=== PATIENT | female | born 1980 | race Caucasian/White ===

== ENCOUNTER 2022-10-05 14:22 | Outpatient (CLI) | payer MEDICAID, SELFPAY ==
[2022-10-05 22:12] LABS: Cholesterol* 192 mg/dL (90-199); Glucose* 90 mg/dL (60-115); Triglycerides* 245 mg/dL (40-149)
[2022-10-05 22:13] LABS: HDL Cholesterol* 54 mg/dL (>=50); LDL Cholesterol Calculated 89 mg/dL (<100)
[2022-10-07 02:47] LABS: Iron* 25 ug/dL (37-170)
[2022-10-07 03:23] LABS: Ferritin* 6.8 ng/mL (6.24-137.0)
== END 2022-10-05 14:23 | disposition home or self-care (01) ==
PROVIDERS: PCP Family Medicine; Visit Provider Registered Nurse
DX: Z01.419 Encounter for gynecological examination (general) (routine) without abnormal findings (principal); N92.0 Excessive and frequent menstruation with regular cycle; I10 Essential (primary) hypertension; E66.01 Morbid (severe) obesity due to excess calories; Z13.6 Encounter for screening for cardiovascular disorders; Z13.1 Encounter for screening for diabetes mellitus
CPT/HCPCS: 80061; 82728; 82947; 83540; 84443

== ENCOUNTER 2022-12-06 14:55 | Outpatient (CLI) | payer MEDICAID, SELFPAY ==
--- NOTE | 2022-12-06 14:40 | CRLHL7_ITS ---
For Patients: As a result of the Century Cures Act, medical imaging exams and procedure reports are released immediately into your electronic medical record. You may view this report before your referring provider. If you have questions, please contact your health care provider. BILATERAL SCREENING MAMMOGRAM WITH COMPUTER-AIDED DETECTION AND TOMOSYNTHESIS TECHNIQUE: CC and MLO views were obtained. These mammographic images have been obtained using full-field digital technique. These mammographic images were interpreted with the benefit of computer-aided detection. Breast tomosynthesis was used in this interpretation. COMPARISON FILM: None. This is a baseline study. FINDINGS: The breasts are heterogeneously dense, which may obscure small masses. IMPRESSION: There is no radiographic evidence for malignancy. ASSESSMENT: BI-RADS Category 1: Negative RECOMMENDATION: Routine screening mammogram in 1 year. A lay language report of this examination will be provided to the patient. MICHAEL PENA M.D. Diagnostic Radiologist [email or web address] Transcribed: 12/07/2022, 2:[address]/Dictated by: Michael Pena MD @ 12/07/2022 9:37:00 AM (Electronically Signed)
== END 2022-12-06 14:56 | disposition home or self-care (01) ==
PROVIDERS: PCP Family Medicine; Visit Provider Registered Nurse
DX: Z12.31 Encounter for screening mammogram for malignant neoplasm of breast (principal); R92.2 Inconclusive mammogram
CPT/HCPCS: 77063; 77067

== ENCOUNTER 2023-03-06 15:11 | Outpatient (CLI) | payer MEDICAID, SELFPAY ==
--- NOTE | 2023-03-06 15:00 | CRLHL7_ITS ---
For Patients: As a result of the Century Cures Act, medical imaging exams and procedure reports are released immediately into your electronic medical record. You may view this report before your referring provider. If you have questions, please contact your health care provider. INDICATION: heavy bleeding COMPARISON: none TECHNIQUE: 2D morales scale and color Doppler images were acquired of the pelvis using a transabdominal and transvaginal approach. FINDINGS: Sonographic images demonstrate a normal size and smooth outer contour of the uterus. Uterus measures 8.2 cm in length by 4.8 cm in AP diameter by 6.0 cm in transverse dimension. The myometrium has a slightly heterogeneous echotexture. The endometrial lining measures 15 mm in composite thickness. The right ovary measures 3.6 x 2.1 x 2.1 cm in size and the left ovary measures 3.3 x 2.2 x 1.5 cm. The ovaries demonstrate normal arterial and venous blood flow on color Doppler analysis. There are no suspicious fluid collections within the cul-de-sac. IMPRESSION: Endometrial thickness measures 15 millimeters. Dictated by Michael Smith MD @ 03/07/2023 9:46:45 AM (Electronically Signed)
== END 2023-03-06 15:12 | disposition home or self-care (01) ==
PROVIDERS: PCP Family Medicine; Visit Provider Registered Nurse
DX: N92.0 Excessive and frequent menstruation with regular cycle (principal); R93.89 Abnormal findings on diagnostic imaging of other specified body structures
CPT/HCPCS: 76830; 76856

== ENCOUNTER 2024-03-11 18:36 | Emergency (ER) | payer MEDICAID, SELFPAY ==
[2024-03-11 18:42] VITALS: BP 145/89; PULSE 92; RESP 16; TEMP 36.4; O2SAT 97; BMI 39.5
--- NOTE | 2024-03-11 18:54 | ED.GENADULT ---
HPI - General Adult General Chief complaint: Nausea/Vomiting Stated complaint: vomiting - unable to keep food down Time Seen by Provider: 03/11/24 18:45 History of Present Illness HPI narrative: Pt reports she was at [facility] appt and they advised her to come to ER. Pt states she hasn't been able to eat for 1-2 weeks, states she has been staying in bed for about 20 hours per day, feels very tired. Reports intermittent fevers. Pt reports she vomits whenever she tries to eat. Has lower back pain, does have known polycystic kidney disease. 43-year-old woman presenting to the emergency department with concern of vomiting and diarrhea. Any time she tries to eat or drink anything she vomits and has diarrhea and intense I understand upper abdominal pain. Not so much pain at rest. Symptoms began about a week and a half ago with some low back pain. She notes a history of PCOS thought perhaps maybe would be urinary tract infection? She has been extremely fatigued over this period of time. Early on the course measured a temperature of a 102? but no longer. Does have a history of taking semaglutide for 8 weeks and has discontinued it for now. There were no dosage changes otherwise. She also was taking her Adderall hoping that it would provide some energy. No rashes. Notes a history of chronic anemia. Intermittent nonpleuritic chest pain Related Data Home Medications ?Medication ?Instructions ?Recorded ?Confirmed dextroamphetamine-amphetamine ER 30 mg PO BID 03/09/23 03/13/24 30 mg 24hr capsule,extend release (Adderall XR) semaglutide (weight loss) 1 mg/0.5 1 mg subcut 03/11/24 03/13/24 mL subcutaneous pen injector (Wegovy) Previous Rx's ?Medication ?Instructions ?Recorded ferrous sulfate 325 mg (65 mg 325 mg PO QDAY #30 tabs 10/10/22 iron) tablet medroxyprogesterone 10 mg tablet 10 mg PO QDAY #30 tabs 03/13/24 Allergies Allergy/AdvReac Type Severity Reaction Status Date / Time nicotine patches Allergy Severe Redness of Uncoded 03/13/24 14:56 Skin Review of Systems Status of ROS: Reports: 6 or more systems reviewed and unremarkable except as noted in History and below [facility] Medical History Syncope ?R55 - Syncope and collapse (ICD-10) Generalized anxiety disorder ?F41.1 - Generalized anxiety disorder (ICD-10) Major depression, recurrent ?F33.9 - Major depressive disorder, recurrent, unspecified (ICD-10) Menorrhagia ?N92.0 - Excessive and frequent menstruation with regular cycle (ICD-10) Iron deficiency anemia ?D50.9 - Iron deficiency anemia, unspecified (ICD-10) Migraines ?G43.909 - Migraine, unspecified, not intractable, without status migrainosus (ICD-10) Hypertension ?I10 - Essential (primary) hypertension (ICD-10) Obesity, morbid, BMI 40.0-49.9 ?E66.01 - Morbid (severe) obesity due to excess calories (ICD-10) Posttraumatic stress disorder ?F43.10 - Post-traumatic stress disorder, unspecified (ICD-10) Polycystic kidney disease (01/01/13) ?Q61.3 - Polycystic kidney, unspecified (ICD-10) Opioid withdrawal ?F11.93 - Opioid use, unspecified with withdrawal (ICD-10) Obstructive sleep apnea syndrome (06/30/13) ?G47.33 - Obstructive sleep apnea (adult) (pediatric) (ICD-10) Meningioma (11/07/10) ?D32.9 - Benign neoplasm of meninges, unspecified (ICD-10) Drusen of both optic discs ?H47.323 - Drusen of optic disc, bilateral (ICD-10) Chronic back pain (2010) ?M54.9 - Dorsalgia, unspecified (ICD-10) ?G89.29 - Other chronic pain (ICD-10) Attention deficit hyperactivity disorder (ADHD) ?F90.9 - Attention-deficit hyperactivity disorder, unspecified type (ICD-10) Opioid dependence ?F11.20 - Opioid dependence, uncomplicated (ICD-10) Seizure disorder ?G40.909 - Epilepsy, unspecified, not intractable, without status epilepticus (ICD-10) History of type 2 diabetes mellitus ?Z86.39 - Personal history of other endocrine, nutritional and metabolic disease (ICD-10) History of migraine ?Z86.69 - Personal history of other diseases of the nervous system and sense organs (ICD-10) Surgical History History of cholecystectomy (11/07/10) ?Z90.49 - Acquired absence of other specified parts of digestive tract (ICD-10) History of bilateral inguinal hernia repair (11/07/10) ?Z98.890 - Other specified postprocedural states (ICD-10) ?Z87.19 - Personal history of other diseases of the digestive system (ICD-10) Family History Family/Other Heart disease Colon cancer Breast cancer Cancer Father Stroke Aneurysm High blood pressure FH: mental illness Kidney disease Abuse, drug or alcohol Sister Uterine cancer High blood pressure Maternal Grandmother Thyroid disease Mother High blood pressure Paternal Grandfather Kidney disease Other Bleeding disorder Social History Narrative: Cis-gender, heterosexual woman Relationship status: In a monogamous relationship with a cis-gender man since 2012. 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 E-cigarettes: No Alcohol: No Illicit/recreational drugs: History of opioid abuse, last used 2010 per patient report. Has used medical marijuana. Safety concerns at home or work: No Dietary restriction(s): No Exercise: No Tobacco use Medical marijuana use What is your current living situation?: I presently have a place to live Problems where you live: no known problems In the past 12 months, utilities in danger of being shut off: no In past 12 months, lack of transportation kept you from medical appts, meetings, work, or getting things needed for daily living: no In the past 12 mos, have been you worried that your food would run out before you had money to buy more?: never true In the past 12 mos, the food you bought just didn't last and you didn't have money to buy more?: never true Smoking Status: Current every day smoker What tobacco products do you use: cigarettes Do you use any of these nicotine containing products: None Second hand tobacco smoke exposure: No How often do you have a drink containing alcohol: never How often do you have six or more drinks on one occasion: Never AUDIT-C Alcohol total score: 0 Non-prescribed substance use: denies use and former substance user How often does anyone, including family, friends and others, physically hurt you: never How often does anyone, including family, friends and others, insult or talk down to you: rarely How often does anyone, including family, friends and others, threaten you with harm: never How often does anyone, including family, friends and others, scream or curse at you: rarely Little interest or pleasure in doing things: more than half the days Feeling down, depressed, or hopeless: more than half the days Exam Narrative: Exam Narrative: Pleasant. Seems uncomfortable. Breathing easily. Not labored not tachypneic. Heart in mildly elevated rate and regular rhythm without murmur rub or gallop. Lungs are clear. Tenderness across the pelvis increasing into the right adnexal area. No peritoneal signs. No flank pain. She is rather tender about the left SI joint. Extremities are well perfused. Without edema. Const: Vital Signs, click to edit/add: Vital Signs - 24 hr 03/11/24 18:42 Temperature 97.6 F Pulse Rate [Pulse Oximeter] 92 Respiratory Rate 16 Blood Pressure [Ri ght Upper Arm] 145/89 H Pulse Oximetry 97 Oxygen Delivery Me thod Room Air Documenting provider has reviewed patient's vital signs: yes Course Vital Signs Vital signs: Initial Vital Signs Temperature 97.6 F 03/11/24 18:42 Temperature Source Temporal Artery Scan 03/11/24 18:42 Pulse Rate 92 03/11/24 18:42 Respiratory Rate 16 03/11/24 18:42 Blood Pressure 145/89 H 03/11/24 18:42 Blood Pressure Mean 107 H 03/11/24 18:42 Blood Pressure Position Sitting 03/11/24 18:42 Pulse Oximetry 97 03/11/24 18:42 Oxygen Delivery Method Room Air 03/11/24 18:42 Vital Signs Temperature 97.6 F 03/11/24 18:42 Pulse Rate 92 03/11/24 18:42 Respiratory Rate 16 03/11/24 18:42 Blood Pressure 145/89 H 03/11/24 18:42 Pulse Oximetry 97 03/11/24 18:42 Oxygen Delivery Method Room Air 03/11/24 18:42 Temperature 97.6 F 03/11/24 18:42 Pulse Rate 72 03/11/24 20:27 Respiratory Rate 16 03/11/24 20:27 Blood Pressure 148/98 H 03/11/24 20:27 Pulse Oximetry 97 03/11/24 20:27 Oxygen Delivery Method Room Air 03/11/24 20:27 Medications Administered Medications: Discontinued Medications Generic Name Dose Route Start Last Admin Trade Name Radha PRN Reason Stop Dose Admin Sodium Chloride 1,000 mls @ 1,000 mls/hr 03/11/24 19:08 03/11/24 20:26 0.9 % Sodium Chloride 1000 Ml IV 03/11/24 20:07 Infused .Q1H ONE Infusion Lactated Ringer's 1,000 mls @ 1,000 mls/hr 03/11/24 20:20 03/11/24 21:09 Lactated Ringers 1000 Ml IV 03/11/24 21:19 Infused .Q1H ONE Infusion Ondansetron HCl 4 mg 03/11/24 19:08 03/11/24 19:33 Ondansetron 2 Mg/Ml Inj IVP 03/11/24 19:09 4 mg ONCE ONE Administration Medical Decision Making MDM Narrative Medical decision making narrative: Initiating IV fluids, Zofran. Differential does include med reaction/residual medication effect, COVID or influenza strain, other nonspecific viral illness/gastroenteritis, other irritable bowel. Does not have any particular infectious exposure. With treatment as above overall improved. Did receive 2 L of fluid. Labs are reassuring. Transaminases are little elevated. I would think that this is more related to fatty liver. I suppose could also be reactive in vomiting illness. See patient discharge plan for further discussion Medical Records Medical records reviewed: Yes I reviewed the patient's medical records Lab Data Lab results reviewed: Yes I reviewed the patient's lab results Labs: Lab Results 03/11/24 03/11/24 03/11/24 Range/Units 19:09 19:20 19:28 WBC 10.16 (4.50-11.00) K/uL RBC 5.51 H (4.00-5.20) m/uL Hgb 12.8 (12.0-16.0) gm/dL Hct 41.7 (33.0-51.0) % MCV 76 L (80-100) fL MCH 23 L (26-34) pg MCHC 31 L (32-36) gm/dL RDW Coeff of Lisa 16.0 H (11.5-15.5) % Plt Count 405 (140-440) K/uL Neut % (Auto) 65.1 (42.0-72.0) % Lymph % (Auto) 26.2 (20-44) % [place] % (Auto) 7.8 (0.0-11.0) % Eos % (Auto) 0.5 (0.0-7.0) % Baso % (Auto) 0.2 (0.0-3.0) % Neut # (Auto) 6.62 (1.7-7.0) K/uL Lymph # (Auto) 2.66 (0.90-2.90) K/uL [place] # (Auto) 0.80 (0.00-0.90) K/UL Eos # (Auto) 0.05 (0.00-0.50) K/uL Baso # (Auto) 0.02 (0.00-0.30) K/uL Abs Immat Gran (auto) 0.02 (0.00-0.30) K/uL Imm/Tot Granulo (auto) 0.2 % Sodium 140 (135-149) mmol/L Potassium 4.0 (3.6-5.1) mmol/L Chloride 106 (96-114) mmol/L Carbon Dioxide 24 (20-32) mmol/L Anion Gap 10 (7-15) mEq/L BUN 15 (5-24) mg/dL Creatinine 0.7 (0.5-1.5) mg/dL Estimated Creat Clear 85.72 Estimated GFR 110 ml/min Glucose 93 (60-115) mg/dL Calcium 9.3 (8.4-10.6) mg/dL Magnesium 2.1 (1.5-2.6) mg/dL Total Bilirubin 1.0 (0.1-1.5) mg/dL Direct Bilirubin 0.3 (0.0-0.5) mg/dL AST 62 H (12-35) U/L ALT 66 H (4-35) U/L Alkaline Phosphatase 58 (40-150) U/L C-Reactive Protein < 0.5 L (0.5-1.0) mg/dL Total Protein 7.9 (6.0-8.3) g/dL Albumin 5.1 H (3.3-5.0) g/dL Urine Color Yellow (Yellow) Urine Appearance Clear (Clear) Urine pH 5.5 (5.0-8.5) Ur Specific Ashley >= 1.030 (1.000-1.030) Urine Protein Negative (Negative) Urine Glucose (UA) Negative (Negative) Urine Ketones Negative (Negative) Urine Blood Trace-intact A (Negative) Urine Nitrite Negative (Negative) Urine Bilirubin Negative (Negative) Urine Urobilinogen 0.2 (0.2-1.0) Ur Leukocyte Esterase Negative (Negative) Urine RBC 0-2 (0-2) Urine WBC 2-5 (0-5) Ur Squamous Epith Cells Many A (None-Few) Urine Bacteria Moderate A (None) Urine Mucus Many A (None) SARS-CoV-2 (PCR) Negative SARS-CoV-2 (Negative) Influenza Type A (PCR) Negative PCR FLU A (Negative) Influenza Type B (PCR) Negative PCR FLU B (Negative) Discharge Plan Discharge Clinical Impression: Vomiting, Dehydration, Diarrhea Patient Disposition: Home w/ Parent or Adult Condition: Improved Additional Instructions: Focus on hydration with small frequent amounts of liquid in. Popsicles and Jell-O count. Otherwise slow advance of diet over the next 36 hours with diluted juices, soup broth, crackers, toast, rice. As long as not continuing to experience fever or seeing blood in your stool, might try loperamide for diarrhea. 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 In the meantime you might also take this stool collection kit for collection of your stool/diarrhea and can take that into your clinic if necessary. Prescriptions: No Action medroxyprogesterone 10 mg tablet 10 mg PO QDAY Qty: 30 0RF Rx Instructions: Take 1 tablet daily to TID on your menstrual cycle to prevent heavy bleeding. dextroamphetamine-amphetamine [Adderall XR] 30 mg capsule,extended release 24hr 30 mg PO BID Wegovy 1 mg/0.5 mL pen injector 1 mg subcut ferrous sulfate 325 mg (65 mg iron) tablet 325 mg PO QDAY Qty: 30 2RF Follow Up/Referrals: Provider,Not a Local [Primary Care Provider] - Stand Alone Forms: [facility] Info Instructions
[2024-03-11 19:31] LABS: Appearance Urine Clear (Clear); Bilirubin Urine Negative (Negative); Blood Urine Trace-intact (Negative); Color Urine Yellow (Yellow); Glucose Urine Negative (Negative); Ketones Urine Negative (Negative); Leukocyte Esterase Urine Negative (Negative); Nitrite Urine Negative (Negative); Protein Urine Negative (Negative); Specific Gravity Urine >= 1.030 (1.000-1.030); Urobilinogen Urine 0.2 (0.2-1.0); pH Urine 5.5 (5.0-8.5)
[2024-03-11] MEDS: 0.9 % SODIUM CHLORIDE 1000 ml 1,000 ML IV (19:32)
[2024-03-11] MEDS: ONDANSETRON 2 MG/ML inj 4 MG IVP (19:33)
[2024-03-11 19:35] LABS: Basophils Absolute Auto 0.02 K/uL (0.00-0.30); Basophils Percent Auto 0.2 % (0.0-3.0); Eosinophils Absolute Auto 0.05 K/uL (0.00-0.50); Eosinophils Percent Auto 0.5 % (0.0-7.0); Hematocrit 41.7 % (33.0-51.0); Hemoglobin* 12.8 gm/dL (12.0-16.0); Immature Granulocytes Abs Auto 0.02 K/uL (0.00-0.30); Immature Granulocytes Pct Auto 0.2 %; Lymphocytes Absolute Auto 2.66 K/uL (0.90-2.90); Lymphocytes Percent Auto 26.2 % (20-44); Mean Corpuscular HGB Conc 31 gm/dL (32-36); Mean Corpuscular Hemoglobin 23 pg (26-34); Mean Corpuscular Volume 76 fL (80-100); Monocytes Percent Auto 7.8 % (0.0-11.0); Neutrophils Absolute Auto 6.62 K/uL (1.7-7.0); Neutrophils Percent Auto 65.1 % (42.0-72.0); Platelet Count* 405 K/uL (140-440); Red Blood Count 5.51 m/uL (4.00-5.20); White Blood Count* 10.16 K/uL (4.50-11.00)
[2024-03-11 19:41] LABS: Bacteria Urine Moderate; Mucus Urine Many; RBC Urine 0-2 (0-2); Squamous Epithelial Cell Urine Many (None-Few)
[2024-03-11 19:50] LABS: Albumin* 5.1 g/dL (3.3-5.0); Chloride* 106 mmol/L (96-114); Slide Review Reflex No
[2024-03-11 19:51] LABS: Sodium* 140 mmol/L (135-149)
[2024-03-11 19:53] LABS: Creatinine* 0.7 mg/dL (0.5-1.5); Est. Creatinine Clearance* 85.72; Estimated Glomerular Filt Rate 110 ml/min
[2024-03-11 19:54] LABS: Alanine Aminotransferase* 66 U/L (4-35); Alkaline Phosphatase* 58 U/L (40-150); Anion Gap 10 mEq/L (7-15); Aspartate Amino Transferase* 62 U/L (12-35); Bilirubin Direct* 0.3 mg/dL (0.0-0.5); Blood Urea Nitrogen* 15 mg/dL (5-24); Carbon Dioxide* 24 mmol/L (20-32); Total Protein* 7.9 g/dL (6.0-8.3)
[2024-03-11 19:55] LABS: Calcium* 9.3 mg/dL (8.4-10.6); Glucose* 93 mg/dL (60-115); Magnesium* 2.1 mg/dL (1.5-2.6)
[2024-03-11 20:03] LABS: C Reactive Protein* < 0.5 mg/dL (0.5-1.0)
[2024-03-11 20:27] VITALS: BP 148/98; PULSE 72; RESP 16; O2SAT 97
[2024-03-11] MEDS: LACTATED RINGERS 1000 ML 1,000 ML IV (20:27)
[2024-03-11 21:13] LABS: PCR FLU A Negative PCR FLU A (Negative); PCR FLU B Negative PCR FLU B (Negative); SARS PCR* Negative SARS-CoV-2 (Negative)
== END 2024-03-11 21:19 | disposition home or self-care (01) ==
PROVIDERS: Emergency Provider Family Medicine
DX: R11.10 Vomiting, unspecified (principal); E86.0 Dehydration; R19.7 Diarrhea, unspecified
CPT/HCPCS: 36415; 80048; 80076; 81001; 83735; 85025; 86140; 87086; 87631; 96374; 99283; 99284; J2405; J7030; J7120

== ENCOUNTER 2024-04-10 10:56 | Outpatient (CLI) | payer MEDICAID, SELFPAY ==
--- NOTE | 2024-04-10 10:45 | CRLHL7_ITS ---
For Patients: As a result of the Century Cures Act, medical imaging exams and procedure reports are released immediately into your electronic medical record. You may view this report before your referring provider. If you have questions, please contact your health care provider. DIGITAL DIAGNOSTIC BILATERAL MAMMOGRAM USING TOMOSYNTHESIS AND COMPUTER-AIDED DETECTION LEFT BREAST ULTRASOUND CLINICAL HISTORY: LEFT breast lump. COMPARISON: 12/06/2022. TECHNIQUE: Digital BILATERAL mammogram in four projections with computer-aided detection. Tomosynthesis was used in this interpretation. Real-time ultrasound imaging of LEFT breast with imaging documentation. BREAST COMPOSITION: There are areas of scattered fibroglandular density. FINDINGS: 3D CC/MLO bilateral mammogram images submitted. No suspicious mass or architectural distortion. No suspicious calcifications or adenopathy. Targeted LEFT breast ultrasound performed at 9 o`clock 3 cm from the nipple. Normal fibroglandular tissue. No suspicious findings. IMPRESSION: No evidence of malignancy. RECOMMENDATIONS: Annual bilateral screening mammography. Results and recommendations discussed with the patient. BI-RADS Category 2: Benign A lay language report of this examination will be provided to the patient. Dictated by Michael Smith MD @ 04/10/2024 12:14:11 PM [email or web address]/Dictated by: Michael Smith MD @ 04/10/2024 12:14:00 PM (Electronically Signed)
--- NOTE | 2024-04-10 11:15 | CRLHL7_ITS ---
For Patients: As a result of the Cures Act, medical imaging exams and procedure reports are released immediately into your electronic medical record. You may view this report before your referring provider. If you have questions, please contact your health care provider. PLEASE SEE DIGITAL DIAGNOSTIC BILATERAL MAMMOGRAM PERFORMED SAME DAY CRL:glo cdoy/Dictated by: Michael Smith MD @ 04/10/2024 12:14:00 PM (Electronically Signed)
== END 2024-04-10 10:57 | disposition home or self-care (01) ==
LOC: MAMMO 10:57
PROVIDERS: Visit Provider Obstetrics & Gynecology
DX: N63.20 Unspecified lump in the left breast, unspecified quadrant (principal)
CPT/HCPCS: 76642; 77066; G0279